=== PATIENT | male | born 1995 | race Two or more races ===

== ENCOUNTER 2018-05-26 13:05 | Emergency (ER) | payer SELFPAY ==
--- NOTE | 2018-05-26 13:43 | EDM.PDOC ---
ED HPI GENERAL MEDICAL PROBLEM - General Chief Complaint: Headache Stated Complaint: RIGHT SIDE OF FACE SWOLLEN Time Seen by Provider: 05/26/18 13:37 Source of Information: Reports: Patient History Limitations: Reports: No Limitations - History of Present Illness INITIAL COMMENTS - FREE TEXT/NARRATIVE: HISTORY AND PHYSICAL: History of present illness: Patient is a 22-year-old male here with complaint of fever and left sided facial swelling x 2 days. He states he had a temperature or 101F yesterday but no fever today. He states he has a lot of pain to the left side of his face and difficulty eating due to the pain in the left jaw. He denies any nausea, vomiting, diarrhea, difficulty breathing or swallowing, headache, sore throat. He is taking tylenol as needed for the pain with little relief. He is drinking plenty of fluids. Review of systems: As per history of present illness and below otherwise all systems reviewed and negative. Past medical history: As per history of present illness and as reviewed below otherwise noncontributory. Surgical history: As per history of present illness and as reviewed below otherwise noncontributory. Social history: No reported history of drug or alcohol abuse. Family history: As per history of present illness and as reviewed below otherwise noncontributory. Physical exam: General: patient sitting comfortably in no acute distress HEENT: There is swelling noted to the left side of the mandible. No parotid swelling or tenderness. Patient has pain with percussion of lower left teeth, no erythema or abscessn noted in the mouth. No purulence at deirda's duct. Atraumatic, normocephalic, pupils reactive, negative for conjunctival pallor or scleral icterus, mucous membranes moist, throat clear, neck supple, nontender, trachea midline. Lungs: Clear to auscultation, breath sounds equal bilaterally, chest nontender. Heart: S1S2, regular, negative for clicks, rubs, or JVD. Extremities: Atraumatic. Neurovascular unremarkable. Neuro: Awake, alert, oriented. Cranial nerves II through XII unremarkable. Cerebellum unremarkable. Motor and sensory unremarkable throughout. Exam nonfocal. Notes: Diagnostics: None Therapeutics: Prescription Clindamycin Impression: Sialadenitis vs dental infection Plan: 1. Take antibiotic as directed. Alternate tylenol and motrin as needed for pain or fever. May try lemon hard candies as needed. 2. Follow up with dentist and primary care provider 3. Return to ED as needed as discussed Definitive disposition and diagnosis as appropriate pending reevaluation and review of above. Right Face Pain Score (Numeric/FACES): 8 - Related Data Allergies Allergy/AdvReac Type Severity Reaction Status Date / Time No Known Allergies Allergy Verified 05/26/18 13:28 Home Meds: Home Meds Acetaminophen [Mapap] 1,000 mg 05/26/18 [History] Clindamycin HCl 300 mg PO TID 10 Days #30 capsule 05/26/18 [Rx] D-Methorphan/PE/Acetaminophen [Theraflu Multi-Symp Cold Cplt] 05/26/18 [History ] Past Medical History - Past Health History Medical/Surgical History: Denies Medical/Surgical History Musculoskeletal History: Reports: Fracture Other Musculoskeletal History: L arm - Infectious Disease History Infectious Disease History: Reports: None Social & Family History - Family History Family Medical History: Noncontributory - Tobacco Use Smoking Status *Q: Never Smoker Second Hand Smoke Exposure: No - Recreational Drug Use Recreational Drug Use: No ED ROS ENT - Review of Systems Review Of Systems: ROS reveals no pertinent complaints other than HPI. ED EXAM, ENT - Physical Exam Exam: See Below (see dictation) Course - Vital Signs Last Recorded V/S: Last Vital Signs Temp 36.8 C 05/26/18 13:24 Pulse 64 05/26/18 13:24 Resp 18 05/26/18 13:24 BP 128/75 05/26/18 13:24 Pulse Ox 100 05/26/18 13:24 Departure - Departure Time of Disposition: 13:45 Disposition: Home, Self-Care 01 Condition: Good Clinical Impression: Dental infection, Sialadenitis - Discharge Information Prescriptions: Clindamycin HCl 300 mg PO TID 10 Days #30 capsule Referrals: PCP,None [Primary Care Provider] - Additional Instructions: The following information is given to patients seen in the emergency department who are being discharged to home. This information is to outline your options for follow-up care. We provide all patients seen in our emergency department with a follow-up referral. The need for follow-up, as well as the timing and circumstances, are variable depending upon the specifics of your emergency department visit. If you don't have a primary care physician on staff, we will provide you with a referral. We always advise you to contact your personal physician following an emergency department visit to inform them of the circumstance of the visit and for follow-up with them and/or the need for any referrals to a consulting specialist. The emergency department will also refer you to a specialist when appropriate. This referral assures that you have the opportunity for follow-up care with a specialist. All of these measure are taken in an effort to provide you with optimal care, which includes your follow-up. Under all circumstances we always encourage you to contact your private physician who remains a resource for coordinating your care. When calling for follow-up care, please make the office aware that this follow-up is from your recent emergency room visit. If for any reason you are refused follow-up, please contact the [facility] at and asked to speak to the emergency department charge nurse. [facility] [address] [place] [id number] [facility] [address] [place] [id number] 1. Take antibiotic as directed. Alternate tylenol and motrin as needed for pain or fever. May try lemon hard candies as needed. 2. Follow up with dentist and primary care provider 3. Return to ED as needed as discussed
== END 2018-05-26 14:08 | disposition home or self-care (01) ==
LOC: MW.ED 13:05
DX: K11.20 Sialoadenitis, unspecified (principal); K04.7 Periapical abscess without sinus; Z79.899 Other long term (current) drug therapy
CPT/HCPCS: 99282

== ENCOUNTER 2018-06-03 15:17 | Emergency (ER) | payer SELFPAY ==
--- NOTE | 2018-06-03 15:23 | EDM.PDOC ---
ED HPI GENERAL MEDICAL PROBLEM - General Chief Complaint: General Stated Complaint: RT SIDE JAW HURTS Time Seen by Provider: 06/03/18 15:23 Source of Information: Reports: Patient History Limitations: Reports: No Limitations - History of Present Illness INITIAL COMMENTS - FREE TEXT/NARRATIVE: HISTORY AND PHYSICAL: []22-year-old male presenting with left jaw pain History of Present Illness: []Patient had been seen in the emergency department on 05/26/2018 for dental pain started on antibiotics Then patient was seen by Dr. Sterling at his dentist office. Tooth was extracted. He states that he has been bleeding and now is having increased pain. He went to the office which is closed today as it is Tuesday. Review of Systems: As per history of present illness and below otherwise all systems reviewed and negative. Past medical history: As per history of present illness and as reviewed below otherwise noncontributory. Surgical history: As per history of present illness and as reviewed below otherwise noncontributory. Social history: No reported history of drug or alcohol abuse. Family history: As per history of present illness and as reviewed below otherwise noncontributory. Physical exam: Alert gentleman answering questions appropriately in full sentences having some difficulty opening his mouth wide . HEENT: Atraumatic, normocehpalic, pupils reactive, negative for conjunctival pallor or scleral icterus, mucous membranes moist, throat clear, neck supple, nontender, trachea midline. Mild edema noted to the posterior left jaw. Coffeen teeth have been removed. No bleeding at this time. Lungs: Clear to auscultation, breath sounds equal bilaterally, chest non tender. Heart: S1S2, regular, negative for clicks, rubs, or JVD. Abdomen: Soft, nondistended, nontender. Negative for masses or hepatossplenmegaly. Negative for costovertebral tenderness. Pelvis: Stable nontender. Genitourinary: Deferred. Rectal: Deferred Extremities: Atraumatic, negative for cords or calf pain. Neurovascular unremarkable. Neuro: Awake, alert, oriented. Cranial nerves II through XII unremarkable. Cerebellum unremarkable. Motor and sensory unremarkable throughout. Exam nonfocal. Diagnostics: [] Therapeutics: []Dental balls Impression: []Post tooth extraction pain Plan: []Discharge home Dental balls* Ibuprofen [id number] 3 tablets 3 times a day. May take Tylenol in between the ibuprofen Follow-up with your dentist Tuesday06/06/2018 Return to the emergency room as directed and discussed Definitive disposition and diagnosis as appropriate pending reevaluation and review of above. Tooth/Teeth Pain Score (Numeric/FACES): 10 - Related Data Allergies Allergy/AdvReac Type Severity Reaction Status Date / Time No Known Allergies Allergy Verified 06/03/18 15:24 Home Meds: Home Meds . [No Known Home Meds] 06/03/18 [History] Past Medical History - Past Health History Medical/Surgical History: Denies Medical/Surgical History Musculoskeletal History: Reports: Fracture Other Musculoskeletal History: L arm - Infectious Disease History Infectious Disease History: Reports: None Social & Family History - Family History Family Medical History: Noncontributory ED ROS GENERAL - Review of Systems Review Of Systems: ROS reveals no pertinent complaints other than HPI. ED EXAM, GENERAL - Physical Exam Exam: See Below (see dictation) Course - Vital Signs Last Recorded V/S: Last Vital Signs Temp 36.2 C 06/03/18 15:25 Pulse 98 06/03/18 15:25 Resp 16 06/03/18 15:25 BP 131/68 06/03/18 15:25 Pulse Ox 99 06/03/18 15:25 - Orders/Labs/Meds Orders: Active Orders 24 hr Category Date Time Status Benzocaine [Hurricaine One 20%] Med 06/03/18 15:27 Once 2 each MUCMEM ONETIME ONE Lidocaine 2% [Xylocaine 2% Viscous] Med 06/03/18 15:27 Once 15 ml PO ONETIME ONE Medication Orders Benzocaine (Hurricaine One 20%) 2 each MUCMEM ONETIME ONE Stop: 06/03/18 15:28 Lidocaine HCl (Xylocaine 2% Viscous) 15 ml PO ONETIME ONE Stop: 06/03/18 15:28 Meds: Medications Generic Name Dose Route Start Last Admin Trade Name Freq PRN Reason Stop Dose Admin Benzocaine 2 each 06/03/18 15:27 Hurricaine One 20% MUCMEM 06/03/18 15:28 ONETIME ONE Lidocaine HCl 15 ml 06/03/18 15:27 Xylocaine 2% Viscous PO 06/03/18 15:28 ONETIME ONE Departure - Departure Time of Disposition: 15:33 Disposition: Home, Self-Care 01 Condition: Good Clinical Impression: Pain, dental - Discharge Information *PRESCRIPTION DRUG MONITORING PROGRAM REVIEWED*: Not Applicable *COPY OF PRESCRIPTION DRUG MONITORING REPORT IN PATIENT RACQUEL: Not Applicable Referrals: PCP,None [Primary Care Provider] - Forms: ED Department Discharge Additional Instructions: The following information is given to patients seen in the emergency department who are being discharged to home. This information is to outline your options for follow-up care. We provide all patients seen in our emergency department with a follow-up referral. The need for follow-up, as well as the timing and circumstances, are variable depending upon the specifics of your emergency department visit. If you don't have a primary care physician on staff, we will provide you with a referral. We always advise you to contact your personal physician following an emergency department visit to inform them of the circumstance of the visit and for follow-up with them and/or the need for any referrals to a consulting specialist. The emergency department will also refer you to a specialist when appropriate. This referral assures that you have the opportunity for followup care with a specialist. All of these measure are taken in an effort to provide you with optimal care, which includes your followup. Under all circumstances we always encourage you to contact your private physician who remains a resource for coordinating your care. When calling for followup care, please make the office aware that this follow-up is from your recent emergency room visit. If for any reason you are refused follow-up, please contact the [facility] emergency department at and asked to speak to the emergency department charge nurse. Discharge home Dental balls* Ibuprofen [id number] 3 tablets 3 times a day. May take Tylenol in between the ibuprofen Follow-up with your dentist Tuesday06/06/2018 Return to the emergency room as directed and discussed - My Orders Last 24 Hours: My Active Orders 06/03/18 15:27 Benzocaine [Hurricaine One 20%] 2 each MUCMEM ONETIME ONE Lidocaine 2% [Xylocaine 2% Viscous] 15 ml PO ONETIME ONE - Assessment/Plan Last 24 Hours: My Active Orders 06/03/18 15:27 Benzocaine [Hurricaine One 20%] 2 each MUCMEM ONETIME ONE Lidocaine 2% [Xylocaine 2% Viscous] 15 ml PO ONETIME ONE
[2018-06-03] MEDS ORDERED: Benzocaine 20% Topical Spray UD MUCMEM ONE (15:27)
[2018-06-03] MEDS ORDERED: Lidocaine 2% Viscous Solution 15 ML Cup PO ONE (15:27)
[2018-06-03] MEDS ORDERED: Ketorolac 60 MG/2 ML SDV IM ONE (16:09)
== END 2018-06-03 16:31 | disposition home or self-care (01) ==
LOC: MW.ED 15:17
DX: K08.89 Other specified disorders of teeth and supporting structures (principal)
CPT/HCPCS: 96372; 99282; A9270; J1885